=== PATIENT | male | born 1955 | race Caucasian/White ===

== ENCOUNTER 2017-08-20 12:49 | Emergency (ER) | payer OTHER ==
[~2017-08-20] VITALS: Ht 170.2 cm; Wt 72.9 kg
[~2017-08-20 12:49] MED LIST: ALPR0.5T3 PO; DELS30LI5 PO; PROT40TA PO; RANI150UDC PO; [UNRECOGNIZED DRUG - OTHER] PO
[2017-08-20 13:01] VITALS: BP 119/77; PULSE 74; RESP 16; TEMP 98.2; O2SAT 96
[2017-08-20] MEDS ORDERED: LEVO50TA4 PO (13:24)
[2017-08-20] MEDS ORDERED: ALPR0.5T3 PO (13:24)
[2017-08-20] MEDS ORDERED: PEMB1INJ (13:24)
[2017-08-20] MEDS ORDERED: PROCHCT RECTAL (13:24)
[2017-08-20] MEDS ORDERED: NYST1000 SWISH-SWAL (13:24)
[2017-08-20] MEDS ORDERED: LEXA20TA PO (13:24)
[2017-08-20] MEDS ORDERED: ZOLP10TA3 PO (13:24)
[2017-08-20] MEDS ORDERED: LIDOCAINE HCL 1% 50 ML VIAL INFIL ONE (13:45)
[2017-08-20] MEDS ORDERED: TETANUS/DIPHTHERIA TOXOID ADULT 0.5 ML VIAL IM ONE (13:45)
--- NOTE | 2017-08-20 14:07 | PD ---
HPI Chief Complaint: Laceration/Skin Injury Time Seen by Provider: 13:25 Travel History International Travel<30 days: No Contact w/Intl Traveler<30days: No Traveled to known affect area: No History of Present Illness HPI 61-year-old male presents to the emergency room for evaluation of a laceration to his left fifth finger that occurred just prior to arrival. Patient was using a circular fall with his right hand when he slipped cutting his left fifth finger. He immediately ran it under water and applied pressure before coming to the emergency room. Reports mild to moderate pain but denies bony tenderness to palpation. Reports mild paresthesias distally. Unknown last tetanus. Of note, patient is currently on immunotherapy for throat cancer. 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) GERD: Yes Genitourinary: No Immune Disorder: No Implanted Vascular Access Dvce: No Musculoskeletal: Yes (CURRENT BROKEN CLAVICLE) Neurologic: No Psychiatric: No Reproductive: No Respiratory: No Radiation Therapy: Yes ?: Not Past Surgical History Abdominal Surgery: Yes (HERNIA) Endocrine Surgery: Yes (CERVICAL LYMPH NODE BX) Oral Surgery: Yes (PARTIAL GLOSSECTOMY) Pacemaker: No Tonsillectomy: Yes Other Surgery: Yes (TONGUE RESECTION CANCER, feeding tube, trach) Social History Alcohol Use: Yes (NONE IN LAST MONTH AND A HALF) Tobacco Use: No (QUIT 6 MONTHS AGO) Substance Use: No Allergies-Medications (Allergen,Severity, Reaction): Coded Allergies: codeine (Unverified Adverse Reaction, Severe, ITCHING, 06/20/17) Reported Meds & Prescriptions Reported Meds & Active Scripts Active Reported Keytruda Inj (Pembrolizumab) 100 Mg/4 Ml (25 Mg/Ml) Inj Nystatin Liq 100,000 unit/ml Susp 5 Ml SWISH-SWAL QID Proctofoam Hc Rectal (Hydrocortisone/Pramoxine) 1-1% Foam 1 Applic RECTAL Q8H PRN Zolpidem (Zolpidem Tartrate) 10 Mg Tab 10 Mg PO HS PRN Lexapro (Escitalopram Oxalate) 20 Mg Tab 20 Mg PO DAILY Alprazolam 0.5 Mg Tab 0.5 Mg PO Q6H PRN Levothyroxine (Levothyroxine Sodium) 50 Mcg Tab 50 Mcg PO DAILY Review of Systems Except as stated in HPI: all other systems reviewed are Neg Physical Exam Narrative GENERAL: Well-nourished, well-developed male in no acute distress. Afebrile. Ambulatory. SKIN: Focused skin assessment warm/dry. He is a large, macerated wound to the left fifth finger on the medial, proximal aspect. Nonbleeding. HEAD: Normocephalic. EYES: No scleral icterus. No injection or drainage. NECK: Supple, trachea midline. No JVD or lymphadenopathy. CARDIOVASCULAR: Regular rate and rhythm without murmurs, gallops, or rubs. RESPIRATORY: Breath sounds equal bilaterally. No accessory muscle use. GASTROINTESTINAL: Abdomen soft, non-tender, nondistended. MUSCULOSKELETAL: No cyanosis. No obvious edema. Less than 2 second capillary refill distally. Distal sensation intact. Full range of motion of the left fifth finger. No bony tenderness to palpation. Data Data Last Documented VS Vital Signs Date Time Temp Pulse Resp B/P (MAP) Pulse Ox O2 Delivery O2 Flow Rate FiO2 08/20/17 13:01 98.2 74 16 119/77 (91) 96 Orders Orders Finger (Igz8mir) (08/20/17 ) Lidocaine 1% Inj (50 Ml) (Xylocaine 1% I (08/20/17 13:45) Tetanus/Diphtheria Tox Adult (Tetanus/Di (08/20/17 13:45) Cephalexin (Keflex) (08/20/17 15:15) MDM Medical Decision Making Medical Screen Exam Complete: Yes Emergency Medical Condition: Yes Medical Record Reviewed: Yes Differential Diagnosis Laceration, contusion, open fracture Narrative Course 61-year-old male presents to the emergency room for evaluation of a laceration to his left fifth finger that occurred just prior to arrival. Patient accidentally cut his hand with a circular saw. Physical exam reveals macerated wound to the left, proximal, medial fifth finger. It is not bleeding. No bony tenderness to palpation. Finger is neurovascularly intact with less than 2 second capillary refill distally. Distal sensation intact. Patient has full range of motion. Region was thoroughly cleansed and repaired, see procedure note for details. X-ray shows bony involvement that is intra-articular. Patient prefers not to go to the operating room. I spoke to the hand surgeon on -call, Dr. Mccarthy, he states as long as I irrigated the wound, he should be fine to follow up as an outpatient. Patient was given first dose of Keflex in the emergency room. Patient discharged with wound care instructions and Keflex and told to follow up with a hand surgeon or return immediately for worsening symptoms or signs of infection. He understands and agrees to plan. Procedures Procedure Narrative LACERATION LOCATION: Left fifth finger LENGTH: 2 cm NUMBER OF STITCHES/DULCE: 5 simple interrupted, 2 buried REPAIR: The area of the laceration was prepped with Betadine and sterilely draped. The laceration was infiltrated with 1% lidocaine. The wound was copiously irrigated and explored without evidence of foreign body, tendon injury or neurovascular injury. The wound was closed using 5-0 Prolene and 5-0 Vicryl. This was a double layer repair. A sterile dressing was applied. The patient was advised to keep the dressing clean and dry. Patient tolerated the procedure well. Diagnosis Primary Impression: Open fracture of finger of left hand Qualified Codes: S62.617B - Displaced fracture of proximal phalanx of left little finger, initial encounter for open fracture Referrals: Gretchen Mccarthy MD Primary Care Physician Additional Instructions: Rest and drink plenty of fluids. Keep wound clean and dry. Stitches out in 10 days. Keflex as directed, until gone. Apply ice to the affected area for 20 minutes at a time, as needed for pain and swelling. Follow-up with Dr. Mccarthy or any other hand surgeon of your choice. Return to the emergency room for worsening symptoms. Med/Other Pt SpecificInfo: Prescription(s) given Disposition: 01 DISCHARGE HOME Condition: Stable Mi Zurita Aug 20, 2017 14:07
--- NOTE | 2017-08-20 15:10 | RADRPT ---
EXAM DATE/TIME: 08/20/2017 13:48 [facility] COMPARISON: No previous studies available for comparison. INDICATIONS : Left 5th digit laceration , accident with saw. MEDICAL HISTORY : None. SURGICAL HISTORY : None. ENCOUNTER: Initial ACUITY: 1 day PAIN SCORE: 10/10 LOCATION: Left 5th digit FINDINGS: There is a fracture of the medial aspect of the possible phalanx of the fifth digit. Intra-articular extension of the fracture is present. CONCLUSION: 1. Fracture proximal phalanx fifth digit Richy Deal MD on August 20, 2017 at 15:07 Board Certified Radiologist. This report was verified electronically.
[2017-08-20] MEDS ORDERED: CEPHALEXIN MONOHYDRATE 500 MG CAP PO ONE (15:15)
[2017-08-20] MEDS ORDERED: CEPH-460 PO (15:23)
[2017-08-20] MEDS ORDERED: CEPH250S PO (15:26)
[2017-08-20] MEDS ORDERED: HYDR1SOL3 PO (15:35)
== END 2017-08-20 15:43 | disposition home or self-care (01) ==
LOC: PHEFT 12:49
DX: S61.217A Laceration without foreign body of left little finger without damage to nail, initial encounter (principal); S62.617B Displaced fracture of proximal phalanx of left little finger, initial encounter for open fracture; W31.2XXA Contact with powered woodworking and forming machines, initial encounter; K21.9 Gastro-esophageal reflux disease without esophagitis; Z85.810 Personal history of malignant neoplasm of tongue; Z87.891 Personal history of nicotine dependence; Z79.899 Other long term (current) drug therapy; Z23 Encounter for immunization
CPT/HCPCS: 12041; 73140; 90471; 90714

== ENCOUNTER 2018-03-31 17:24 | Emergency (ER) | payer OTHER ==
[~2018-03-31] VITALS: Ht 172.7 cm; Wt 74.3 kg
[~2018-03-31 17:24] MED LIST changes: +CEPH250S PO; -DELS30LI5 PO; +HYDR1SOL3 PO; +LEVO50TA4 PO; +LEXA20TA PO; +NYST1000 SWISH-SWAL; +PEMB1INJ; +PROCHCT RECTAL; -PROT40TA PO; -RANI150UDC PO; +ZOLP10TA3 PO; -[UNRECOGNIZED DRUG - OTHER] PO
[2018-03-31 17:41] VITALS: BP 114/65; PULSE 88; RESP 16; TEMP 98.8; O2SAT 95
--- NOTE | 2018-03-31 18:22 | PD ---
HPI Chief Complaint: GI Complaint Time Seen by Provider: 17:57 Travel History International Travel<30 days: No Contact w/Intl Traveler<30days: No Traveled to known affect area: No History of Present Illness HPI 62-year-old male complains of abdominal pain and fever. Patient states that the fever started this morning. Patient states that temperature was up to 101 with chills. Patient states that he has upper abdominal pain which radiates to the back started this morning. Patient states that he vomited this afternoon. Fever was 100.8 this afternoon. Patient took hydrocodone for pain and Tylenol for fever. Patient states he feeling better now. Patient denies any headache. Patient denies any chest pain or shortness of breath. Patient denies any coughing congestion. Patient denies any dysuria or frequency. Patient denies history of oropharyngeal cancer. Patient status post surgery, radiation and chemotherapy. 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) GERD: Yes Genitourinary: No Immune Disorder: No Implanted Vascular Access Dvce: No Musculoskeletal: Yes (CURRENT BROKEN CLAVICLE) Neurologic: No Psychiatric: No Reproductive: No Respiratory: No Radiation Therapy: Yes ?: Not Past Surgical History Abdominal Surgery: Yes (HERNIA) Endocrine Surgery: Yes (CERVICAL LYMPH NODE BX) Oral Surgery: Yes (PARTIAL GLOSSECTOMY) Pacemaker: No Tonsillectomy: Yes Other Surgery: Yes (TONGUE RESECTION CANCER, feeding tube, trach) Social History Alcohol Use: Yes (NONE IN LAST MONTH AND A HALF) Tobacco Use: No (QUIT 6 MONTHS AGO) Substance Use: No Allergies-Medications (Allergen,Severity, Reaction): Coded Allergies: codeine (Unverified Adverse Reaction, Severe, ITCHING, 06/20/17) Reported Meds & Prescriptions Reported Meds & Active Scripts Active Hydrocodone-Acetaminophen Liq 7.5-325 Mg/15 Ml Soln 15 Ml PO Q6H PRN 3 Days Cephalexin Liq (Cephalexin Monohydrate) 250 Mg/5 Ml Susp 500 Mg PO Q6H 10 Days Reported Keytruda Inj (Pembrolizumab) 100 Mg/4 Ml (25 Mg/Ml) Inj Nystatin Liq 100,000 unit/ml Susp 5 Ml SWISH-SWAL QID Proctofoam Hc Rectal (Hydrocortisone/Pramoxine) 1-1% Foam 1 Applic RECTAL Q8H PRN Zolpidem (Zolpidem Tartrate) 10 Mg Tab 10 Mg PO HS PRN Lexapro (Escitalopram Oxalate) 20 Mg Tab 20 Mg PO DAILY Alprazolam 0.5 Mg Tab 0.5 Mg PO Q6H PRN Levothyroxine (Levothyroxine Sodium) 50 Mcg Tab 50 Mcg PO DAILY Review of Systems General / Constitutional: Positive: Fever Eyes: No: Visual changes HENT: No: Headaches Cardiovascular: No: Chest Pain or Discomfort Respiratory: No: Shortness of Breath Gastrointestinal: Positive: Abdominal Pain Genitourinary: No: Dysuria Musculoskeletal: No: Pain Skin: No Rash Neurologic: No: Weakness Psychiatric: No: Depression Endocrine: No: Polydipsia Hematologic/Lymphatic: No: Easy Bruising Physical Exam Narrative GENERAL: Well-nourished, well-developed patient. SKIN: Focused skin assessment warm/dry. HEAD: Normocephalic. EYES: No scleral icterus. No injection or drainage. NECK: Supple, trachea midline. No JVD or lymphadenopathy. Tracheostomy present. CARDIOVASCULAR: Regular rate and rhythm without murmurs, gallops, or rubs. RESPIRATORY: Breath sounds equal bilaterally. No accessory muscle use. GASTROINTESTINAL: Abdomen soft, nondistended. Nontender on palpation. Feeding tube in place. MUSCULOSKELETAL: No cyanosis, or edema. BACK: Nontender without obvious deformity. No CVA tenderness. Neurologic exam normal. Data Data Last Documented VS Vital Signs Date Time Temp Pulse Resp B/P (MAP) Pulse Ox O2 Delivery O2 Flow Rate FiO2 03/31/18 18:14 16 03/31/18 17:41 98.8 88 114/65 (81) 95 Orders Orders Complete Blood Count With Diff (03/31/18 18:08) Comprehensive Metabolic Panel (03/31/18 18:08) Prothrombin Time / Inr (Pt) (03/31/18 18:08) Act Partial Throm Time (Ptt) (03/31/18 18:08) Lipase (03/31/18 18:08) Urinalysis - C+S If Indicated (03/31/18 18:08) Chest, Single Ap (03/31/18 18:08) Ct Abd/Pel W Iv Contrast(Rout) (03/31/18 18:08) Iv Access Insert/Monitor (03/31/18 18:08) Ecg Monitoring (03/31/18 18:08) Oximetry (03/31/18 18:08) Blood Culture (03/31/18 18:08) MDM Medical Decision Making Medical Screen Exam Complete: Yes Emergency Medical Condition: Yes Differential Diagnosis Differential diagnosis including viral syndrome, bronchitis, pneumonia, gastritis, cholecystitis, colitis, UTI, pyelonephritis. Narrative Course 62-year-old male with fever and upper abdominal pain. Abdominal pain started this morning however since then resolved. History of oropharyngeal cancer status post surgery, radiation and chemotherapy. Patient is on immune therapy. Сергей Granados MD March 31, 2018 18:22
--- NOTE | 2018-03-31 18:32 | RADRPT ---
EXAM DATE: 03/31/2018 6:27 PM EDT AGE/SEX: 62 years / Male INDICATIONS: Fever. CLINICAL DATA: This is the patient's initial encounter. Patient reports that signs and symptoms have been present for 1 day and indicates a pain score of 0/10. MEDICAL/SURGICAL HISTORY: . . Tracheostomy. Rt clavicle. Infusaport. COMPARISON: Chest x-ray 04/02/2012. FINDINGS: A single AP view of the chest demonstrates the lungs to be symmetrically aerated without evidence of mass, infiltrate or effusion. The cardiomediastinal contours are unremarkable. Osseous structures a re intact. Orthopedic plate involving the right clavicle. Left subclavian Port-A-Cath. CONCLUSION: Negative examination. Electronically signed by: De Hutchinson MD 03/31/2018 6:31 PM EDT
[2018-03-31 18:53] LABS: BILIRUBIN, URINE NEG (NEG); BLOOD, URINE NEG (NEG); GLUCOSE,URINE NEG (NEG); KETONE, URINE TRACE mg/dL (NEG); NITRITE,URINE NEG (NEG); PH, URINE 5.5 (5.0-8.5); URINE COLOR YELLOW (YELLW/STRAW); URINE LEUKOCYTE ESTERASE NEG (NEG)
[2018-03-31 18:58] LABS: AUTOMATED NEUTROPHIL # 8.4 TH/MM3 (1.8-7.7); BASOPHIL # 0.4 TH/MM3 (0-0.2); BASOPHIL % 3.6 % (0.0-2.0); EOSINOPHIL % 0.1 % (0.0-4.0); HEMATOCRIT 46.3 % (39.0-51.0); HEMOGLOBIN 16.1 GM/DL (13.0-17.0); LYMPHOCYTE # 0.5 TH/MM3 (1.0-4.8); MEAN CELL VOLUME 92.2 FL (80.0-100.0); MEAN CORPUSCULAR HGB CONC 34.7 % (32.0-36.0); MONOCYTE # 0.6 TH/MM3 (0-0.9); NEUT % 85.3 % (16.0-70.0); PLATELET COUNT 127 TH/MM3 (150-450); RED BLOOD COUNT 5.03 MIL/MM3 (4.50-5.90); RED CELL DISTRIBUTION WIDTH 13.5 % (11.6-17.2); WHITE BLOOD COUNT 9.9 TH/MM3 (4.0-11.0)
[2018-03-31 18:59] LABS: RBC, URINE 0-3 /hpf (0-3); SQUAMOUS EPITHELIAL CELL URINE 0-5 /hpf (0-5); WBC, URINE 0-2 /hpf (0-5)
[2018-03-31 19:01] LABS: CHLORIDE 104 MEQ/L (98-107); SODIUM (NA) 137 MEQ/L (136-145)
[2018-03-31 19:04] LABS: CALCIUM 9.1 MG/DL (8.5-10.1)
[2018-03-31 19:05] LABS: ALBUMIN 3.8 GM/DL (3.4-5.0); BICARBONATE 24.8 MEQ/L (21.0-32.0); BLOOD UREA NITROGEN 12 MG/DL (7-18); GLUCOSE,RANDOM 134 MG/DL (74-106); INTERNATIONAL NORMALIZED RATIO 1.1 RATIO; PROTHROMBIN TIME - PATIENT 11.4 SEC (9.8-11.6)
[2018-03-31 19:07] LABS: ALT (GPT) 106 U/L (12-78); AST (GOT) 96 U/L (15-37)
[2018-03-31 19:08] LABS: CREATININE 0.82 MG/DL (0.60-1.30); GLOMERULAR FILTRATION RATE 96 ML/MIN (>89)
[2018-03-31 19:09] LABS: TOTAL BILIRUBIN ADULT 0.6 MG/DL (0.2-1.0); TOTAL PROTEIN 7.6 GM/DL (6.4-8.2)
[2018-03-31 19:10] LABS: ALKALINE PHOSPHATASE 120 U/L (45-117)
[2018-03-31] MEDS ORDERED: SOMA250T PO (19:11)
[2018-03-31] MEDS ORDERED: PANT40TA3 PO (19:12)
[2018-03-31 19:13] VITALS: BP 85/64; PULSE 74; RESP 16; TEMP 98.9; O2SAT 97
[2018-03-31] MEDS ORDERED: IOHEXOL 350 MG/ML 10 ML VIAL (for RAD DIAG) IVCONTRAST ONE (19:34)
--- NOTE | 2018-03-31 19:56 | RADRPT ---
EXAM DATE: 03/31/2018 7:33 PM EDT AGE/SEX: 62 years / Male INDICATIONS: Upper abdominal pain. Feeding tube in place. CLINICAL DATA: This is the patient's initial encounter. Patient reports that signs and symptoms have been present for 1 day and indicates a pain score of 6/10. MEDICAL/SURGICAL HISTORY: Carcinoma, tongue. . Hernia repair. Tongue resection. ORAL CONTRAST: No oral contrast ingested. RADIATION DOSE: 9.67 CTDI (mGy) COMPARISON: . TECHNIQUE: Multiple contiguous axial images were obtained through the abdomen and pelvis following b olus infusion of 90 ml Omnipaque 350 (iohexol) nonionic water-soluble contrast as a single exam dos e. No oral contrast ingested. Using automated exposure control and adjustment of the mA and/or kV ac cording to patient size, the radiation dose was kept as low as reasonably achievable to obtain optima l diagnostic quality images. FINDINGS: Lower Lungs: The visualized lower lungs are clear. Liver: The liver is mildly hypodense compared to the spleen. There are no space-occupying lesions or biliary duct dilatation. Minimal thickening of the gallbladder wall is noted. There is no pericholecy stic fluid or evidence of cholelithiasis. Spleen: Homogeneous density without enlargement. Pancreas: Unremarkable without mass or calcification. Kidneys: Normal in size and shape. No evidence of mass or hydronephrosis. A 2.4 cm simple cyst is id entified in the midpole of the left kidney. A 1.4 cm cyst is identified in the mid to upper pole of t he right kidney. Adrenal Glands: Unremarkable. Aorta: The aorta and proximal iliac vessels are grossly unremarkable without aneurysmal dilation. Bowel/Mesentery: Percutaneous gastrostomy tube in place. The bowel loops are grossly unremarkable. Th e cecum and sigmoid colon have a normal configuration. Abdominal Wall: Intact. Retroperitoneum: No evidence of adenopathy in the retrocrural, para-aortic, or deep pelvic regions. Bladder: Contours are smooth. Reproductive Organs: No abnormal masses or calcifications seen. Inguinal: The inguinal region is unremarkable without evidence of adenopathy. Bony Structures: Unremarkable. CONCLUSION: 1. No evidence of acute process. 2. PEG tube in place 3. Mild hepatic steatosis 4. Bilateral simple renal cysts Electronically signed by: Lake Champagne MD 03/31/2018 7:55 PM EDT
--- NOTE | 2018-03-31 20:08 | PD ---
Physical Exam Date Seen by Provider: March 31, 2018 Time Seen by Provider: 20:03 Narrative Accepted in transfer of care from Dr. Granados GENERAL: Well-developed well-nourished male no acute distress no respiratory distress SKIN: Warm and dry. HEAD: Normocephalic. EYES: No scleral icterus. No injection or drainage. NECK: Supple, trachea midline. No JVD or lymphadenopathy. Tracheostomy stoma. CARDIOVASCULAR: Regular rate and rhythm without murmurs, gallops, or rubs. RESPIRATORY: Breath sounds equal bilaterally. No accessory muscle use. GASTROINTESTINAL: Abdomen soft, non-tender, nondistended. PEG tube. Data Data Last Documented VS Vital Signs Date Time Temp Pulse Resp B/P (MAP) Pulse Ox O2 Delivery O2 Flow Rate FiO2 03/31/18 20:49 74 16 159/96 (117) 97 Room Air 03/31/18 19:13 98.9 Orders Orders Complete Blood Count With Diff (03/31/18 18:08) Comprehensive Metabolic Panel (03/31/18 18:08) Prothrombin Time / Inr (Pt) (03/31/18 18:08) Act Partial Throm Time (Ptt) (03/31/18 18:08) Lipase (03/31/18 18:08) Urinalysis - C+S If Indicated (03/31/18 18:08) Chest, Single Ap (03/31/18 18:08) Ct Abd/Pel W Iv Contrast(Rout) (03/31/18 18:08) Iv Access Insert/Monitor (03/31/18 18:08) Ecg Monitoring (03/31/18 18:08) Oximetry (03/31/18 18:08) Blood Culture (03/31/18 18:08) Iohexol 350 Inj (Omnipaque 350 Inj) (03/31/18 19:34) Sodium Chlor 0.9% 1000 Ml Inj (Ns 1000 M (03/31/18 20:15) Levofloxacin Liq (Levaquin Liq) (03/31/18 21:45) Ed Discharge Order (03/31/18 21:35) Labs Laboratory Tests Test 03/31/18 18:25 03/31/18 18:40 Urine Color YELLOW Urine Turbidity CLEAR Urine pH 5.5 Urine Specific [place] 1.025 Urine Protein NEG mg/dL Urine Glucose (UA) NEG mg/dL Urine Ketones TRACE mg/dL Urine Occult Blood NEG Urine Nitrite NEG Urine Bilirubin NEG Urine Urobilinogen 0.2 MG/DL Urine Leukocyte Esterase NEG Urine RBC 0-3 /hpf Urine WBC 0-2 /hpf Urine Squamous Epithelial Cells 0-5 /hpf Urine Bacteria NONE /hpf Microscopic Urinalysis Comment CULT NOT INDICATED White Blood Count 9.9 TH/MM3 Red Blood Count 5.03 MIL/MM3 Hemoglobin 16.1 GM/DL Hematocrit 46.3 % Mean Corpuscular Volume 92.2 FL Mean Corpuscular Hemoglobin 32.0 PG Mean Corpuscular Hemoglobin Concent 34.7 % Red Cell Distribution Width 13.5 % Platelet Count 127 TH/MM3 Mean Platelet Volume 10.0 FL Neutrophils (%) (Auto) 85.3 % Lymphocytes (%) (Auto) 5.0 % Monocytes (%) (Auto) 6.0 % Eosinophils (%) (Auto) 0.1 % Basophils (%) (Auto) 3.6 % Neutrophils # (Auto) 8.4 TH/MM3 Lymphocytes # (Auto) 0.5 TH/MM3 Monocytes # (Auto) 0.6 TH/MM3 Eosinophils # (Auto) 0.0 TH/MM3 Basophils # (Auto) 0.4 TH/MM3 CBC Comment DIFF FINAL Differential Comment Prothrombin Time 11.4 SEC Prothromb Time International Ratio 1.1 RATIO Activated Partial Thromboplast Time 42.7 SEC Blood Urea Nitrogen 12 MG/DL Creatinine 0.82 MG/DL Random Glucose 134 MG/DL Total Protein 7.6 GM/DL Albumin 3.8 GM/DL Calcium Level 9.1 MG/DL Alkaline Phosphatase 120 U/L Aspartate Amino Transf (AST/SGOT) 96 U/L Alanine Aminotransferase (ALT/SGPT) 106 U/L Total Bilirubin 0.6 MG/DL Sodium Level 137 MEQ/L Potassium Level 3.9 MEQ/L Chloride Level 104 MEQ/L Carbon Dioxide Level 24.8 MEQ/L Anion Gap 8 MEQ/L Estimat Glomerular Filtration Rate 96 ML/MIN Lipase 67 U/L [facility] Medical Record Reviewed: Yes Supervised Visit with EDUARD: No Interpretation(s) UA: wnl Last Impressions Chest X-Ray 03/31/181807 Signed Impressions: CONCLUSION: Negative examination. Abdomen/Pelvis CT 03/31/181807 Signed Impressions: CONCLUSION: 1. No evidence of acute process. 2. PEG tube in place 3. Mild hepatic steatosis 4. Bilateral simple renal cysts CBC & BMP Diagram 03/31/18 18:40 Total Protein 7.6, Albumin 3.8, Calcium Level 9.1, Alkaline Phosphatase 120 H, Aspartate Amino Transf (AST/SGOT) 96 H, Alanine Aminotransferase (ALT/SGPT) 106 H, Total Bilirubin 0.6 Vital Signs Date Time Temp Pulse Resp B/P (MAP) Pulse Ox O2 Delivery O2 Flow Rate FiO2 03/31/18 19:13 98.9 74 16 85/64 (71) 97 Room Air 03/31/18 18:14 16 03/31/18 17:41 98.8 88 16 114/65 (81) 95 Differential Diagnosis Accepted transfer of care from Dr. Granados; please refer to his dictation Narrative Course Accepted in Transfer of care from Dr. Granados; plan for follow-up of pending CT and patient disposition Patient feels well voicing no concerns or complaints at this time CT abdomen pelvis reveals no acute abnormality lab values remarkable for normal total white cell count of 9900 with mild thrombus cytopenia for a count of 127, 000 and left shift of 85% neutrophils absolute neutrophil #8.4; mild prolongation of APTT at 42.7 urinalysis is unremarkable values are normal metabolic panel is remarkable for normal range bicarb of 24.8 with anion gap of 8 blood sugar mildly elevated at 134 normal renal function BUN 12 creatinine 0.82 AST and ALT are low but elevated AST is 96 with ALT of 106 alkaline phosphatase is mildly elevated at [address] abdomen pelvis reveals no acute process chest x-ray is negative; patient reassessed triage vital signs blood pressure 114/65 however current blood pressure is 85/64. reports that that is a little low for him and that today he has not been well-hydrated she states this morning he had a chill as well as a temperature elevation of 101 then later had a recurrent fever of 100.8 and vomited at least 3-4 times a day with chill. 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 Lei Patient's case discussed with on-call oncologist Dr. Berger who recommends patient receive Levaquin 500 mg daily for 7 days concurs that possible spurious low blood pressure although blood pressure returned into normal range on its own without fluid intervention and subsequently has maintained into a more no range with IV fluid hydration will give first dose of Levaquin in the emergency department is to follow-up with his oncologist Dr. Charles and over the weekend should he have any issues return to the emergency department or follow-up with Dr. Berger. Patient desirous of being discharged to home. Physician Communication Physician Communication discussed with oncology Diagnosis Primary Impression: Febrile illness Referrals: Primary Care Physician call for appointment Follow up with your managing provider Dr Charles call office in AM Patient Instructions: General Instructions Additional Instruction: Encourage increased fluid hydration Complete course of antibiotic as prescribed Continue current medications as currently prescribed Follow-up with your managing provider/Dr. Charles or Dr. Lei Return to the emergency department for any concerns pain fever vomiting or change in condition Take acetaminophen/Tylenol every 4 hours as needed for fever 100.4F or greater Med/Other Pt SpecificInfo: Prescription(s) given Scripts Levofloxacin Liq (Levofloxacin Liq) 25 Mg/Ml Soln 500 MG PEG Q24H for Infection for 7 Days, #480 ML 0 Refills Prov: Kaci Melchor MD 03/31/18 Disposition: 01 DISCHARGE HOME Condition: Stable Kaci Melchor MD March 31, 2018 20:08
[2018-03-31 20:13] VITALS: BP 112/82; PULSE 78; RESP 16; O2SAT 97
[2018-03-31] MEDS ORDERED: SODIUM CHLOR 0.9% 1000 ML INJ 1,000 ML IV ONE (20:15)
[2018-03-31 20:49] VITALS: BP 159/96; PULSE 74; RESP 16; O2SAT 97
[2018-03-31] MEDS ORDERED: LEVO25SO PEG (21:35)
[2018-03-31] MEDS ORDERED: LEVOFLOXACIN ORAL SOLN 2500 MG/100 ML BOTTLE PEG ONE (21:45)
[2018-03-31 22:24] VITALS: BP 157/88
== END 2018-03-31 22:28 | disposition home or self-care (01) ==
LOC: PHED 17:24
DX: R50.9 Fever, unspecified (principal); C01 Malignant neoplasm of base of tongue; C09.9 Malignant neoplasm of tonsil, unspecified; K21.9 Gastro-esophageal reflux disease without esophagitis; Z87.891 Personal history of nicotine dependence
CPT/HCPCS: 71045; 74177; 80053; 81001; 83690; 85025; 85610; 85730; 87040; 96360; 99285; J7030; Q9967